=== PATIENT | female | born 1955 | race Caucasian/White ===

== ENCOUNTER 2018-10-12 07:31 | Outpatient (CLI) | payer OTHER | END 2018-10-12 07:35 | disposition home or self-care (01) | LOC: TOM 07:31 | DX: R19.5 Other fecal abnormalities (principal); R56.00 Simple febrile convulsions ==

== ENCOUNTER 2019-05-13 07:27 | Outpatient (CLI) | payer OTHER | END 2019-05-13 07:31 | disposition home or self-care (01) | LOC: NUCLEAR 07:27 | DX: D35.1 Benign neoplasm of parathyroid gland (principal); E05.80 Other thyrotoxicosis without thyrotoxic crisis or storm | CPT/HCPCS: 78072; A9500 ==